=== PATIENT | male | born 1990 | race Caucasian/White ===

== ENCOUNTER 2017-02-26 12:11 | Emergency (ER) | payer SELFPAY ==
[2017-02-26] MEDS ORDERED: Ketorolac 60 MG/2 ML SDV IM ONE (12:27)
--- NOTE | 2017-02-26 13:05 | EDM.PDOC ---
ED HPI GENERAL MEDICAL PROBLEM - General Chief Complaint: General Stated Complaint: ABDOMINAL PAIN Time Seen by Provider: 02/26/17 12:25 Source of Information: Reports: Patient History Limitations: Reports: No Limitations - History of Present Illness INITIAL COMMENTS - FREE TEXT/NARRATIVE: History of present illness: 26-year-old male comes in complaining of left-sided flank pain. Patient occasionally he woke up with this pain denies trauma, issues with voiding, or issues with having a bowel movement. Review of systems: As per history of present illness and below otherwise all systems reviewed and negative. Past medical history: As per history of present illness and as reviewed below otherwise noncontributory. Surgical history: As per history of present illness and as reviewed below otherwise noncontributory. Social history: No reported history of drug or alcohol abuse. Family history: As per history of present illness and as reviewed below otherwise noncontributory. Physical exam: HEENT: Atraumatic, normocephalic, pupils reactive, negative for conjunctival pallor or scleral icterus, mucous membranes moist, throat clear, neck supple, nontender, trachea midline. Lungs: Clear to auscultation, breath sounds equal bilaterally, chest nontender. Heart: S1S2, regular, negative for clicks, rubs, or JVD. Abdomen: Soft, nondistended, nontender. Negative for masses or hepatosplenomegaly. Positive for costovertebral tenderness. Pelvis: Stable nontender. Genitourinary: Deferred. Rectal: Deferred. Extremities: Atraumatic, negative for cords or calf pain. Neurovascular unremarkable. Neuro: Awake, alert, oriented. Cranial nerves II through XII unremarkable. Cerebellum unremarkable. Motor and sensory unremarkable throughout. Exam nonfocal. Diagnostics: [CBC, CMP, UA] Therapeutics: [] Impression: [Musculoskeletal pain] Plan: [Norflex] Definitive disposition and diagnosis as appropriate pending reevaluation and review of above. back Pain Score (Numeric/FACES): 7 - Related Data Allergies Allergy/AdvReac Type Severity Reaction Status Date / Time No Known Allergies Allergy Verified 02/26/17 12:30 Home Meds: Home Meds . [No Known Home Meds] 02/26/17 [History] Past Medical History - Past Health History Medical/Surgical History: Denies Medical/Surgical History Social & Family History - Family History Family Medical History: Noncontributory - Tobacco Use Smoking Status *Q: Never Smoker - Recreational Drug Use Recreational Drug Use: No ED ROS GENERAL - Review of Systems Review Of Systems: See Below (History of present illness) ED EXAM, GENERAL - Physical Exam Exam: See Below (See history of present illness) Course - Vital Signs Last Recorded V/S: Last Vital Signs Temp 36.3 C 02/26/17 12:30 Pulse 65 02/26/17 12:30 Resp 18 02/26/17 12:30 BP 118/71 02/26/17 12:30 Pulse Ox 97 02/26/17 12:30 - Orders/Labs/Meds Labs: Laboratory Tests 02/26/17 02/26/17 02/26/17 Range/Units 12:32 12:32 13:39 WBC 5.58 (4.0-11.0) K/uL RBC 4.69 (4.50-5.90) M/uL Hgb 14.7 (13.0-17.0) g/dL Hct 43.4 (38.0-50.0) % MCV 92.5 (80.0-98.0) fL MCH 31.3 (27.0-32.0) pg MCHC 33.9 (31.0-37.0) g/dL RDW Std Deviation 43.9 (28.0-62.0) fl RDW Coeff of Olga 13 (11.0-15.0) % Plt Count 194 (150-400) K/uL MPV 11.00 (7.40-12.00) fL Neut % (Auto) 44.7 L (48.0-80.0) % Lymph % (Auto) 42.1 H (16.0-40.0) % [place] % (Auto) 8.4 (0.0-15.0) % Eos % (Auto) 4.3 (0.0-7.0) % Baso % (Auto) 0.5 (0.0-1.5) % Neut # (Auto) 2.5 (1.4-5.7) K/uL Lymph # (Auto) 2.4 (0.6-2.4) K/uL [place] # (Auto) 0.5 (0.0-0.8) K/uL Eos # (Auto) 0.2 (0.0-0.7) K/uL Baso # (Auto) 0.0 (0.0-0.1) K/uL Nucleated RBC % 0.0 /100WBC Nucleated RBCs # 0 K/uL Sodium 142 (136-146) mmol/L Potassium 3.9 (3.5-5.1) mmol/L Chloride 112 H (98-110) mmol/L Carbon Dioxide 23 (21-31) mmol/L BUN 17 (6.0-23.0) mg/dL Creatinine 1.1 (0.6-1.5) mg/dL Est Cr Clr Drug Dosing 94.31 mL/min Estimated GFR (MDRD) > 60.0 ml/min Glucose 99 (60-110) mg/dL Calcium 8.8 (8.8-10.8) mg/dL Total Bilirubin 0.3 (0.1-1.5) mg/dL AST 22 (5-40) IU/L ALT 23 (8-54) IU/L Alkaline Phosphatase 57 (40-150) Total Protein 6.6 (6.0-8.0) g/dL Albumin 4.1 (3.5-5.0) g/dL Globulin 2.5 (2.0-3.5) g/dL Albumin/Globulin Ratio 1.6 (1.3-2.8) Urine Color YELLOW Urine Appearance CLEAR Urine pH 5.5 (5.0-8.0) Ur Specific [place] >= 1.030 (1.001-1.035) Urine Protein NEGATIVE (NEGATIVE) mg/dL Urine Glucose (UA) NEGATIVE (NEGATIVE) mg/dL Urine Ketones NEGATIVE (NEGATIVE) mg/dL Urine Occult Blood NEGATIVE (NEGATIVE) Urine Nitrite NEGATIVE (NEGATIVE) Urine Bilirubin NEGATIVE (NEGATIVE) Urine Urobilinogen 0.2 (<2.0) EU/dL Ur Leukocyte Esterase NEGATIVE (NEGATIVE) Urine RBC 0-1 (0-2/HPF) Urine WBC 0-2 (0-5/HPF) Ur Epithelial Cells OCCASIONAL (NONE-FEW) Amorphous Sediment LIGHT (NEGATIVE) Urine Bacteria FEW (NEGATIVE) Urine Mucus LIGHT (NONE-MOD) Meds: Medications Discontinued Medications Generic Name Dose Route Start Last Admin Trade Name Freq PRN Reason Stop Dose Admin Ketorolac Tromethamine 60 mg 02/26/17 12:27 02/26/17 12:39 Toradol IM 02/26/17 12:28 60 mg ONETIME ONE Administration Departure - Departure Time of Disposition: 14:31 Disposition: Home, Self-Care 01 Condition: Good Clinical Impression: Musculoskeletal pain - Discharge Information Instructions: Back Pain, Adult, [id number] Additional Instructions: The following information is given to patients seen in the emergency department who are being discharged to home. This information is to outline your options for follow-up care. We provide all patients seen in our emergency department with a follow-up referral. The need for follow-up, as well as the timing and circumstances, are variable depending upon the specifics of your emergency department visit. If you don't have a primary care physician on staff, we will provide you with a referral. We always advise you to contact your personal physician following an emergency department visit to inform them of the circumstance of the visit and for follow-up with them and/or the need for any referrals to a consulting specialist. The emergency department will also refer you to a specialist when appropriate. This referral assures that you have the opportunity for follow-up care with a specialist. All of these measure are taken in an effort to provide you with optimal care, which includes your follow-up. Under all circumstances we always encourage you to contact your private physician who remains a resource for coordinating your care. When calling for follow-up care, please make the office aware that this follow-up is from your recent emergency room visit. If for any reason you are refused follow-up, please contact the [facility] at and asked to speak to the emergency department charge nurse. Take medication as directed Follow-up with PCP 1-2 days Return to ED as needed as discussed [facility] [address] [place] [id number]
[2017-02-26 13:16] LABS: CHLORIDE,CL 112 mmol/L (98-110); SODIUM,NA 142 mmol/L (136-146)
[2017-02-26 14:46] VITALS: BP 122/63
== END 2017-02-26 14:41 | disposition home or self-care (01) ==
LOC: MW.ED 12:11
DX: M79.1 Myalgia (principal)
CPT/HCPCS: 36415; 80053; 81001; 85025; 96372; 99283; J1885; 99282